=== PATIENT | female | born 1985 | race Caucasian/White ===

== ENCOUNTER → 2020-06-21 | Outpatient (CLI) | payer OTHER ==
--- NOTE | 2020-06-21 16:27 | REP ---
INDICATION: LEFT DIAG MAMMO/UNCERTAIN BEHAVIOR; LEFT DIAG MAMMO/NEOPLASM OF UNCERTAIN BEHAVIOR. Indentation near the chest wall inferior aspect of the breast for the last year and a half. COMPARISON: No comparison breast imaging. TECHNIQUE: Routine views of the left breast are augmented by an anterior inferior compression oblique view. Targeted left breast chest wall sonography is performed. This mammogram was interpreted with the aid of an FDA-approved computer-aided detection system. FINDINGS: Mammographic views demonstrate heterogeneously dense breast parenchyma. This pattern may inhibit the sensitivity of mammography. No mammographic abnormality is seen. No mass architectural distortion or microcalcification is seen. An unremarkable inframammary fold is seen on inferior compression view. The Volpara volumetric breast density pattern is D. Targeted ultrasound: Targeted sonography in the in from mammary fold region on the left is performed from 6:00 to 9:00. There is a 6 mm cyst noted in the 6 o'clock position 5 cm from the nipple. In addition, at 6 o'clock there is also a hypoechoic nodule 5 mm in diameter located 3 cm from the nipple. There is enhanced through transmission and absence of internal flow on Doppler. The lesion does not meet criteria of simple cyst however because of internal echoes. IMPRESSION: BIRADS/ACR category 4 suspicious left breast mammographic and sonographic findings. Complex cyst versus hypoechoic nodule left breast 6 o'clock position on ultrasound. No mammographic correlate. Is This patient's estimated Tyrer-Cuzick lifetime risk assessment for breast cancer is 22.7%. Enhanced screening in the form of annual bilateral breast MRI scanning may be warranted. RECOMMENDATION: Ultrasound-guided needle biopsy for hypoechoic nodule 6 o'clock position left breast. Marker clip placement and post clip placement mammography is recommended.. The patient letter being requested is M4 dense. <Electronically signed by Cruz Copeland > 06/21/20 [id number]
== END ==
LOC: M WHC 14:26
PROVIDERS: ATTEND Physician Assistant
DX: D48.62 Neoplasm of uncertain behavior of left breast (principal)
CPT/HCPCS: 76642; 77065; G0279

== ENCOUNTER → 2020-06-29 | Outpatient (REF) | payer OTHER ==
[2020-06-29 15:45] LABS: FREE T4 0.88 NG/DL (0.76-1.46); THYROID STIMULATING HORMONE 1.9 uIU/ML (0.358-3.740)
== END ==
LOC: M PLALAB 12:51
PROVIDERS: ATTEND Surgery
DX: N64.52 Nipple discharge (principal)

== ENCOUNTER → 2020-06-29 | Outpatient (REF) | payer OTHER ==
[2020-06-29 15:06] LABS: BASO % 0.5 % (0.0-1.0); EOS # 0.1 10^3/uL (0.0-0.5); EOS % 1.1 % (0.0-3.0); HEMATOCRIT 39.7 % (36.0-47.0); HEMOGLOBIN 12.8 g/dl (12.0-15.5); LYMPH # 2.4 10^3/uL (1.5-5.0); LYMPH % 37.5 % (24.0-44.0); MEAN CORPUSCULAR HEMOGLOBIN 29.1 pg (27.0-33.0); MEAN CORPUSCULAR HGB CONC 32.2 g/dl (32.0-36.5); MEAN CORPUSCULAR VOLUME 90.2 fl (80.0-96.0); MONO # 0.5 10^3/uL (0.0-0.8); MONO % 8.2 % (2.0-8.0); NEUTROPHILS # 3.4 10^3/uL (1.5-8.5); NEUTROPHILS % 52.5 % (36.0-66.0); PLATELET COUNT, AUTOMATED 271 10^3/uL (150-450); WHITE BLOOD COUNT 6.4 10^3/uL (4.0-10.0)
[2020-06-29 15:21] LABS: ALBUMIN 4.2 GM/DL (3.2-5.2); ALT/SGPT 9 U/L (12-78); BILIRUBIN,TOTAL 0.5 MG/DL (0.2-1.0); BLOOD UREA NITROGEN 10 MG/DL (7-18); CALCIUM LEVEL 8.9 MG/DL (8.5-10.1); CARBON DIOXIDE LEVEL 26 MEQ/L (21-32); CHLORIDE LEVEL 106 MEQ/L (98-107); CHOLESTEROL LEVEL 154 MG/DL (<200); CHOLESTEROL RISK RATIO 1.692 (<5); CREATININE FOR GFR 0.77 MG/DL (0.55-1.30); GLOMERULAR FILTRATION RATE > 60.0 (>60); GLUCOSE, FASTING 82 MG/DL (70-100); HDL CHOLESTEROL 91 MG/DL (>40); LDL CHOLESTEROL 55 MG/DL (<100); NON-HDL-C 63 MG/DL; POTASSIUM SERUM 4.1 MEQ/L (3.5-5.1); SODIUM LEVEL 139 MEQ/L (136-145); TOTAL PROTEIN 7.7 GM/DL (6.4-8.2); TRIGLYCERIDES LEVEL 40 MG/DL (<150)
== END ==
LOC: M PLALAB 14:50
PROVIDERS: ATTEND Physician Assistant
DX: Z13.220 Encounter for screening for lipoid disorders (principal)

== ENCOUNTER → 2020-07-06 | Outpatient (CLI) | payer OTHER ==
--- NOTE | 2020-07-06 15:51 | REP ---
INDICATION: N63.10 RT BREAST MASS. History of breast cancer paternal grandmother. COMPARISON: None. TECHNIQUE: MLO and CC views right breast performed with spot compression views and tomosynthesis. FINDINGS: Heterogeneously dense fibroglandular tissue is present. No mass is seen mammographically. There is no architectural distortion. There are no clustered microcalcifications. Focused right breast ultrasound is performed at 6 o'clock, at the site of the reported palpable abnormality. There is an oval simple cyst at that location measuring 9 x 3 x 10 mm. No other cystic or solid nodule is seen. The Volpara volumetric breast density pattern is D. IMPRESSION: BIRADS/ACR category 2, benign. No mammographic abnormality is identified. At the site of the palpable lump 6 o'clock right breast an oval simple benign cyst is identified sonographically measuring 9 x 3 x 10 mm. [facility] lifetime breast cancer risk assessment score is 22.7%. This mammogram was interpreted with the aid of an FDA-approved computer-aided detection system. The patient states she had a clinical breast exam in September 2019. The patient letter being requested is M2. RECOMMENDATION: Annual supplemental screening MRI of the breasts is recommended for patients with an elevated lifetime risk of breast cancer of 20% or greater. <Electronically signed by Nakul Moura > 07/06/20 [id number]
== END ==
LOC: M WHC 14:01
PROVIDERS: ATTEND Surgery
DX: D24.1 Benign neoplasm of right breast (principal); Z80.3 Family history of malignant neoplasm of breast
CPT/HCPCS: 76642; 77065; G0279

== ENCOUNTER → 2020-07-14 | Outpatient (CLI) | payer OTHER ==
[~2020-07-14] MED LIST: PROHANCE 279.3MG/ML 15ML VIAL As Ordered ONE
--- NOTE | 2020-07-14 18:52 | REP ---
INDICATION: NATIVIDAD BREAST MASSES. COMPARISON: Mammogram and ultrasound 06/21/2020 and 07/06/2020. TECHNIQUE: Three Heidi MRI imaging was performed with a dedicated breast coil. Axial, coronal, and sagittal T1 and T2 weighted scans were obtained with and without fat saturation in the usual fashion. The study includes dynamically acquired post gadolinium-enhanced imaging with image subtraction. Maximum intensity projection and multi planar reformation imaging is included as well. This study is interpreted with the aid of Kynetx, an FDA approved computer aided detection (CAD) software program, on a dedicated breast MRI workstation. The gadolinium enhancement dose is 13 mL of intravenous ProHance. FINDINGS: There is an extreme pattern of parenchymal tissue symmetrically bilaterally. There are multiple bilateral cysts throughout both breasts. The largest cyst is in the left axillary tail and measures approximately 2.5 x 1.7 cm. Most of the other bilateral cysts are subcentimeter in size. No axillary adenopathy bilaterally. There is mild diffuse background parenchymal enhancement. There is no suspicious enhancing mass or morphologic abnormality. IMPRESSION: BI-RADS category 2, benign bilateral breast MRI. No suspicious enhancing mass or morphologic abnormality. Multiple bilateral benign cysts are present. <Electronically signed by Nakul Moura > 07/14/20 1152
== END ==
LOC: M RAD 14:58
PROVIDERS: ATTEND Surgery
DX: N60.02 Solitary cyst of left breast (principal); N63.20 Unspecified lump in the left breast, unspecified quadrant; N63.10 Unspecified lump in the right breast, unspecified quadrant; N64.52 Nipple discharge; R92.2 Inconclusive mammogram; Z91.89 Other specified personal risk factors, not elsewhere classified
CPT/HCPCS: A9576; C8908

== ENCOUNTER → 2020-08-23 | Outpatient (CLI) | payer OTHER ==
[~2020-08-23] MED LIST changes: +FISH1000 PO; +MULT1TAB8 PO; -PROHANCE 279.3MG/ML 15ML VIAL As Ordered ONE
[2020-08-23 14:55] VITALS: BP 108/66
--- NOTE | 2020-08-23 15:41 | REP ---
INDICATION: N63.20 LEFT BREAST MASS/US GUIDED BX. COMPARISON: Comparison sonography left breast June 21, 2020.. TECHNIQUE: Sonographic guidance. FINDINGS: Ultrasound guidance is provided to Dr. Crowder performed ultrasound-guided needle biopsy procedure and marker clip placement procedure in the left breast. IMPRESSION: Sonographic guidance. <Electronically signed by Cruz Copeland > 08/23/20 [id number]
--- NOTE | 2020-08-23 16:29 | REP ---
INDICATION: N63.20 LEFT BREAST MASS/US GUIDED BX/CK CLIP PLACEMENT. COMPARISON: Comparison sonography and mammography June 21, 2020. TECHNIQUE: Craniocaudal and mediolateral views of the left breast are obtained. Marker clip placement study. FINDINGS: Craniocaudal and mediolateral views of the left breast demonstrate a marker clip in place at the 6 o'clock position in the left breast where prior sonography showed and ultrasound target. There is no evidence of hematoma. No mammographically suspicious finding. Breast parenchyma remains extremely dense. The Volpara volumetric breast density pattern is D.. IMPRESSION: A marker clip is noted in the 6 o'clock position in the left breast. <Electronically signed by Cruz Copeland > 08/23/20 1642
--- NOTE | 2020-08-24 19:06 | ROOPDOC ---
[facility] Report Of Operation Report of Operation DATE OF PROCEDURE: 08/23/20 DIAGNOSIS: left breast suspicious lesion PROCEDURE: ultrasound guided biopsy of the left breast suspicious lesion with clip placement SURGEON: Armen Arthur BLOOD LOSS: minimal COMPLICATIONS: none Lidocaine 1% LOT [id number] Expiration 07/2023 Sodium Bicarbonate 8.4% LOT [id number] Expiration 05/2021 Hydromark clip LOT [id number] Expiration 03/17/23 SHAPE : 3 Bx device: BARD [id number] x10 cm LOT [id number] Expiration 05/2023 Informed consent was obtained. The most common risk and possible complications including bleeding, hematoma, bruising, infection, injury to surrounding structures were explained to the patient and the patient expressed understanding. Patient was placed on the bed in the supine position. Appropriate time out was done stating patients name, date of , and the procedure to be performed. The left breast was prepped and draped in the usual fashion. The ultrasound was used to confirm the location of the lesion in the left breast at 6:00 3 centimeters from the nipple. Plain Lidocaine 1% and 8.4% sodium bicarbonate 10:1 mix was used to anesthetize the skin, the biopsy site and tissues along the anticipated biopsy tract. Small skin incision was made with blade number 11. BARD Marquee 14G cannula with introducer ([id number]) was inserted through the incision and advanced under the ultrasound guidance to position immediately adjacent to the lesion. Next, the introducer was removed and BARD Marquee 14G biopsy device was places in the cannula. Pre-biopsy imaging, and post-biopsy imaging were captured. Five good core biopsies were taken at various levels of the lesion. Specimen was placed in formaldehyde, labeled with appropriate biopsy site and patients name, and sent to pathology for evaluation. Next, the biopsy device was withdrawn and a clip introducer was inserted into the biopsy site via the cannula. SHAPE 3 Hydromark clip was deployed under sonographic guidance. Post-clip placement image was captured. Manual pressure over the biopsy cavity and tract was held after the clip introducer was withdrawn. No bleeding was noted upon removal of the pressure. Post-biopsy mammogram of the left breast was obtained and showed clip in expected position. Postprocedural dressing was placed. Patient tolerated procedure well. Discharge instructions were discussed with the patient and the patient expressed understanding. ARMEN ARTHUR DO August 24, 2020 19:06
== END ==
LOC: M WHCPRO 06:34
PROVIDERS: ATTEND Surgery
DX: D24.2 Benign neoplasm of left breast (principal); N63.20 Unspecified lump in the left breast, unspecified quadrant

== ENCOUNTER → 2021-07-10 | Outpatient (CLI) | payer OTHER | LOC: M WHC 10:54 | PROVIDERS: ATTEND Surgery | DX: N63.20 Unspecified lump in the left breast, unspecified quadrant (principal); Z91.89 Other specified personal risk factors, not elsewhere classified | CPT/HCPCS: 76642; 77066; G0279 ==

== ENCOUNTER → 2022-01-07 | Outpatient (CLI) | payer OTHER ==
[~2022-01-07] MED LIST changes: +PROHANCE 279.3MG/ML 15ML VIAL As Ordered ONE
== END ==
LOC: M RAD 12:52
PROVIDERS: ATTEND Nurse Practitioner Women's Health
DX: Z12.31 Encounter for screening mammogram for malignant neoplasm of breast (principal); Z91.89 Other specified personal risk factors, not elsewhere classified; Z80.3 Family history of malignant neoplasm of breast; N60.01 Solitary cyst of right breast; N60.02 Solitary cyst of left breast
CPT/HCPCS: 72114; A9576; C8908